=== PATIENT | female | born 2000 | race Caucasian/White ===

== ENCOUNTER 2022-03-03 22:30 | Emergency (ER) | payer MEDICAID ==
[~2022-03-03] VITALS: Ht 149.9 cm; Wt 64.0 kg
[2022-03-03 23:27] VITALS: BP 108/69
--- NOTE | 2022-03-03 23:32 | NUR ---
PT TO LOBBY.
== END 2022-03-04 01:22 | disposition left against medical advice (07) ==
LOC: MED 22:30
DX: R06.02 Shortness of breath (principal); Z53.21 Procedure and treatment not carried out due to patient leaving prior to being seen by health care provider
CPT/HCPCS: 71045; 81002; 81025

== ENCOUNTER 2022-07-14 21:13 | Emergency (ER) | payer MEDICAID ==
[~2022-07-14] VITALS: Ht 149.9 cm; Wt 69.9 kg
[2022-07-14 21:29] VITALS: BP 100/68
--- NOTE | 2022-07-14 21:49 | NUR ---
urine collected sent to lab
--- NOTE | 2022-07-14 21:50 | NUR ---
PT TO BED #8
[2022-07-14 21:52] LABS: APPEARANCE,URINE CLEAR (CLEAR); BILIRUBIN,URINE NEGATIVE (NEGATIVE); BLOOD, URINE NEGATIVE (NEGATIVE); COLOR,URINE YELLOW (YELLOW); LEUKOCYTE ESTERASE ,URINE 1+ (NEGATIVE); NITRITE, URINE NEGATIVE (NEGATIVE); UGLUCOSE NEGATIVE (NEGATIVE)
--- NOTE | 2022-07-14 22:08 | NUR ---
22 Y/O F PRESENTS WITH L ABDOMEN AND BACK PAIN 02/08 FOR TWO DAYS. PT STATED THIS HAS HAPPENED BEFORE, TOOK TYLENOL TODAY WITH NO RELIEF. PT DENIES DIARRHEA, BUT HAS NV. PMH-PT DENIES NKA
--- NOTE | 2022-07-14 22:25 | NUR ---
DR. DICKENS AT BEDSIDE
[2022-07-14] MEDS ORDERED: cephALEXin 500 MG CAP PO ONE (22:50)
[2022-07-14] MEDS ORDERED: IBUPROFEN 600 MG TAB PO ONE (22:50)
[2022-07-14] MEDS ORDERED: NAPR-54 PO (22:51)
[2022-07-14] MEDS ORDERED: ONDA-188 PO (22:51)
[2022-07-14] MEDS ORDERED: CEPH500C16 PO (22:51)
--- NOTE | 2022-07-14 23:03 | NUR ---
Patient discharged with v/s stable. Written and verbal after care instructions given and explained. Patient alert, oriented and verbalized understanding of instructions. Ambulatory with steady gait. All questions addressed prior to discharge. ID band removed. Patient advised to follow up with PMD. Rx of CEPHALEXIN, NAPROXEN, AND ODANSETRON given. Opportunity to ask questions provided and answered.
--- NOTE | 2022-07-14 23:07 | NUR ---
The patient's care was reviewed and supervised by Jana Lemus RN.
[2022-07-15 04:07] LABS: RBC,URINE 0 /HPF (0-5); WBC,URINE 0-5 /HPF (0-5)
== END 2022-07-14 23:04 | disposition home or self-care (01) ==
LOC: MED 21:13
DX: N39.0 Urinary tract infection, site not specified (principal); J45.909 Unspecified asthma, uncomplicated
CPT/HCPCS: 81001; 81025; 87086; 99283

== ENCOUNTER 2023-11-28 22:25 | Emergency (ER) | payer MEDICAID ==
[~2023-11-28] VITALS: Ht 147.3 cm; Wt 68.0 kg
[~2023-11-28 22:25] MED LIST: CEPH500C16 PO; NAPR-337 PO; ONDA-188 PO
[2023-11-28 22:43] VITALS: BP 115/81; PULSE 86; RESP 16; TEMP 98.1; O2SAT 97
[2023-11-28 23:18] LABS: BASOPHILS % (AUTO) 0.3 % (0.0-2.0); EOSINOPHILS % (AUTO) 0.4 % (0.0-4.0); HEMATOCRIT 40.1 % (36-48); HEMOGLOBIN 13.7 g/dL (12.0-16.0); LYMPHOCYTES # (AUTO) 1.8 K/uL (2.5-16.5); LYMPHOCYTES % (AUTO) 15.2 % (20.5-51.1); MEAN CORPUSCULAR HEMOGLOBIN 27 pg (27-31); MEAN CORPUSCULAR HGB CONC 34 g/dL (33-37); MEAN CORPUSCULAR VOLUME 79.4 fL (80-94); MONOCYTES # (AUTO) 1.1 K/uL (0.8-1.0); MONOCYTES % (AUTO) 9.3 % (1.7-9.3); NEUTROPHILS # (AUTO) 8.9 K/uL (1.8-7.7); NEUTROPHILS % (AUTO) 74.8 % (42.2-75.2); PLATELET COUNT (AUTO) 201 K/uL (140-450); RED BLOOD CELL COUNT(AUTO) 5.05 MIL/uL (4.20-5.40); RED CELL DISTRIBUTION WIDTH 14.7 % (11.6-13.7); WHITE BLOOD COUNT (AUTO) 11.9 K/uL (4.8-10.8)
[2023-11-28 23:18] LABS: APPEARANCE,URINE CLEAR (CLEAR); BILIRUBIN,URINE NEGATIVE (NEGATIVE); BLOOD, URINE TRACE-I (NEGATIVE); COLOR,URINE YELLOW (YELLOW); LEUKOCYTE ESTERASE ,URINE TRACE (NEGATIVE); NITRITE, URINE NEGATIVE (NEGATIVE); PROTEIN,URINE NEGATIVE (NEGATIVE); UGLUCOSE NEGATIVE (NEGATIVE); UROBILINOGEN,URINE 0.2 EU/dL (0.2 - 1)
[2023-11-28] MEDS: NACL 0.9% 1,000 ML IV SCH (23:21)
[2023-11-28 23:32] LABS: ANION GAP 13.3 (8-16); CALCIUM 8.8 mg/dL (8.5-10.1); CREATININE 0.7 mg/dL (0.6-1.3); POTASSIUM 3.3 mmol/L (3.5-5.1)
[2023-11-28 23:38] LABS: ALBUMIN 3.9 g/dL (3.4-5.0); BILIRUBIN,DIRECT 0.1 mg/dL (0.0-0.3); TOTAL BILIRUBIN 0.6 mg/dL (0.0-1.0); TOTAL PROTEIN, SERUM 7.3 g/dL (6.4-8.2)
[2023-11-28 23:39] LABS: BACTERIA,URINE 1+ /HPF (None Seen); RBC,URINE 0-5 /HPF (0-5); SQUAMOUS EPITHELIAL CELL,UR 4-10 (MOD) /LPF (0-3 (FEW))
[2023-11-28] MEDS: ONDANSETRON 4 MG/2 ML VIAL IVP ONE (23:40)
[2023-11-28 23:45] VITALS: BP 115/81; PULSE 86; RESP 16; TEMP 98.1
[2023-11-29] MEDS: POTASSIUM CHLORIDE 20% 40 MEQ/15 ML UDC PO ONE (00:08)
[2023-11-29 00:15] VITALS: O2SAT 97
[2023-11-29] MEDS ORDERED: ONDA-188 SL (00:23)
[2023-11-29] MEDS ORDERED: CEPH-588 PO (00:23)
[2023-11-29] MEDS ORDERED: FAMO-90 PO (00:23)
== END 2023-11-29 00:41 | disposition home or self-care (01) ==
LOC: MED 22:35
DX: N30.00 Acute cystitis without hematuria (principal); J45.909 Unspecified asthma, uncomplicated; Z79.899 Other long term (current) drug therapy
CPT/HCPCS: 36415; 80048; 80076; 81001; 81025; 83690; 85025; 87086; 96361; 96374; 99283; J2405; J7030

== ENCOUNTER 2024-03-08 20:48 | Emergency (ER) | payer MEDICAID ==
[~2024-03-08] VITALS: Ht 147.3 cm; Wt 62.6 kg
[~2024-03-08 20:48] MED LIST changes: +CEPH-588 PO; +FAMO-90 PO; +ONDA-188 SL
[2024-03-08 20:57] VITALS: BP 107/81; PULSE 86; RESP 18; TEMP 98; O2SAT 99
[2024-03-08 21:32] LABS: APPEARANCE,URINE CLEAR (CLEAR); BILIRUBIN,URINE NEGATIVE (NEGATIVE); BLOOD, URINE NEGATIVE (NEGATIVE); COLOR,URINE YELLOW (YELLOW); LEUKOCYTE ESTERASE ,URINE NEGATIVE (NEGATIVE); NITRITE, URINE NEGATIVE (NEGATIVE); PH,URINE 5.5 (5.0-9.0); PROTEIN,URINE NEGATIVE (NEGATIVE); UGLUCOSE NEGATIVE (NEGATIVE); UROBILINOGEN,URINE 0.2 EU/dL (0.2 - 1)
[2024-03-08] MEDS ORDERED: FLUC100T8 PO (21:50)
[2024-03-08] MEDS ORDERED: METR-435 PO (21:50)
[2024-03-08 21:57] VITALS: BP 107/81; PULSE 86; RESP 18; TEMP 98; O2SAT 99
== END 2024-03-08 21:57 | disposition home or self-care (01) ==
LOC: MED 20:48
DX: N76.0 Acute vaginitis (principal); B96.89 Other specified bacterial agents as the cause of diseases classified elsewhere; B37.31 Acute candidiasis of vulva and vagina; J45.909 Unspecified asthma, uncomplicated; Z79.899 Other long term (current) drug therapy
CPT/HCPCS: 81003; 81025; 87210; 87491; 99283